=== PATIENT | female | born 2005 | race Caucasian/White ===

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

== ENCOUNTER 2024-12-15 00:15 | Emergency (ER) | payer SELFPAY ==
--- OUTSIDE RECORDS SUMMARY | 2024-12-15 00:20 | XMS REPORT | Continuity of Care Document ---
Author Name Unknown Address [address] [place] [address] [facility] Address [address] [place] [address] Care Team Providers Care Salvage Repairer Name Role Phone Pcp, Patient Does Not Have A Primary Care Physic jesus alberto PHILLY REZA Attending Clinician Unavailable SWAPNA CORBIN Attending Clinician SWAPNA Ureña Attending Clinician CAROLYN Rodrigues Attending Clinician Kira Manrique MD, Carolyn Attending Clinician + [phone] Doctor Unassigned, [place] Attending Clinician U FRAN Christie Attending Clinician TYRON Cifuentes Attending Clinician Tyron Parra Attending Clinician + [phone] TYRON GALLOWAY Attending Clinician Charlee Curtis MD Attending Clinician + [phone] SONIDO MACEDO Attending Clinician NATHANIEL Lewis Attending Clinician Chris Macedo MD, Sonido Pena Attending Clinician [phone] Pob, [facility] Attending Clinician UnavailCHARLEE Taylor Attending Clinician UnavailNITISH Soriano Attending Clinician Unavailable JYOTSNA ROWE Attending Clinician Unavailable ZAHEER NATHAN Attending Clinician JOSH Luna Attending Clinician Unavailable POOJA ASHRAF Attending Clinician Unavailable Pooja Rondon Attending Clinician 1, [facility] Attending Clinician Unavailable Payers Payer Name Policy Type Policy Number Effective Date Expirati on Date Source [place] [employer] MIGUEL KIDSilvia [id number] 2022 00:00:00 Problems Condition Name Condition Details Condition Category Status Onset Date Resolution Date Last Treatment Date Treating Clinician Comments Source Palpitatio ns in pediatric patient Palpitatio ns in pediatric patient Disease Active 10-05 00:00: 00 General acute hospital Unintentio nal weight change Unintentio nal weight change Disease Active 10-04 00:00: 00 General acute hospital Syncope, unspecifie d syncope type Syncope, unspecifie d syncope type Disease Active 10-04 00:00: 00 Overview: Formattin g of this note might be different from the original. Cardiolog y evaluatio n with TC was done on 0. Documents an EKG done showing sinus bradycard ia. A holter monitor was done which showed predomina nt sinus rhythm, heart rates ranging 38-122. She had an echocardi ogram which was normal without structura l heart disease. They suspected that her syncope was not heart related. They discussed the importanc e of hydration and effects from her medicatio ns. They recommend ed to increase water intake and incorpora te healthy salty snacks. General acute hospital Dizziness Dizziness Disease Active 10-04 00:00: 00 General acute hospital MDD (major depressive disorder) MDD (major depressive disorder) Disease Active 04-24 00:00: 00 General acute hospital PTSD (post-trau matic stress disorder) PTSD (post-trau matic stress disorder) Disease Active 04-24 00:00: 00 General acute hospital ADHD (attention deficit hyperactiv ity disorder) ADHD (attention deficit hyperactiv ity disorder) Disease Active 2-11 00:00: 00 General acute hospital Allergies, Adverse Reactions, Alerts Allergy Name Allergy Type Status Severity Reaction(s) Onset Date Inactive Date Treating Clinician Comments Source NO KNOWN ALLERGIE S Drug Class Active General acute hospital Family History Family Member Diagnosis Comments Start Date Stop Date Sourc e Natural father No Significant Medical Problems [facility] Maternal grandfather Diabetes [facility] Maternal grandmother Diabetes [facility] Natural mother Heart Unive [facility] Paternal grandmother Diabetes [facility] Social History Social Habit Start Date Stop Date Quantity Comments Source [facility] Exposure to SARS-CoV-2 (event) 2021-10-04 00:00:00 2021-10-14 15:36:00 Not sure [facility] Alcohol intake 2021-10-14 00:00:00 2021-10-14 00:00:00 0 /d [facility] Tobacco use and exposure 2021-10-14 00:00:00 2021-10-14 00:00:00 Smokeless tobacco non-user [facility] History of Social function 2021-10-14 00:00:00 2021-10-14 00:00:00 [facility] Sex Assigned At 2005 00:00:00 2005 00:00:00 [facility] Smoking Status Start Date Stop Date Source Never smoked tobacco General acute hospital Medications Ordered Medication Name Filled Medication Name Start Date Stop Date Current Medication? Ordering Clinician Indication Dosage Frequency Signature (SIG) Comments Components Source QUEtiapine 50 mg tablet -12 00:00: 00 Yes [id number] TAKE 3 AND 1/2 TABLETS BY MOUTH ONCE DAILY AT BEDTIME General acute hospital QUEtiapine 50 mg tablet 5-10 00:00: 00 09-22 00:00 :00 No [id number] TAKE 3 AND 1/2 TABLETS BY MOUTH ONCE DAILY AT BEDTIME General acute hospital QUEtiapine 50 mg tablet 2022-0 3-20 00:00: 00 Yes [id number] TAKE 3 AND 1/2 TABLETS BY MOUTH ONCE DAILY AT BEDTIME General acute hospital QUEtiapine 50 mg tablet 2022-0 1-17 00:00: 00 Yes [id number] TAKE 3 AND 1/2 TABLETS BY MOUTH ONCE DAILY AT BEDTIME General acute hospital QUEtiapine 50 mg tablet 2021-03 0-27 00:00: 00 Yes [id number] TAKE 3 AND 1/2 TABLETS BY MOUTH ONCE DAILY AT BEDTIME General acute hospital terbinafine HCL 250 mg tablet 8-04 00:00: 00 11-15 04:59 :00 No [id number] 250mg Take 1 tablet by mouth in the morning for 30 days. General acute hospital QUEtiapine 50 mg tablet 8-03 00:00: 00 Yes [id number] TAKE 3 AND 1/2 TABLETS BY MOUTH ONCE DAILY AT BEDTIME General acute hospital QUEtiapine 50 mg tablet 6-02 00:00: 00 09-23 00:00 :00 No [id number] 175mg Take 3.5 tablets by mouth daily. Take 3.5 tablets once a day at bedtime. General acute hospital Immunizations Ordered Immunization Name Filled Immunization Name Date Status Comments Source Influenza Virus Vaccine 2019-12-12 00:00:00 Completed [facility] Influenza Virus Vaccine 2019-12-12 00:00:00 Completed [facility] Influenza Virus Vaccine 2019-12-12 00:00:00 Completed [facility] Meningococcal Polysaccharide (groups A, C, Y and W-135) conjugate vaccine (MCV4P) 2016-11-03 00:00:00 Completed [facility] TDAP 2016-11-03 00:00:00 Completed [facility] Meningococcal Polysaccharide (groups A, C, Y and W-135) conjugate vaccine (MCV4P) 2016-11-03 00:00:00 Completed [facility] TDAP 2016-11-03 00:00:00 Completed [facility] HPV9 2016-04-20 00:00:00 Completed [facility] HPV 2016-04-20 00:00:00 Completed [facility] HPV9 2016-04-20 00:00:00 Completed [facility] HPV 2016-04-20 00:00:00 Completed [facility] HPV9 2016-04-20 00:00:00 Completed [facility] HPV9 2015-10-20 00:00:00 Completed [facility] HPV 2015-10-20 00:00:00 Completed [facility] HPV9 2015-10-20 00:00:00 Completed [facility] HPV 2015-10-20 00:00:00 Completed [facility] HPV 2015-10-20 00:00:00 Completed [facility] HPV9 2015-09-17 00:00:00 Completed [facility] HPV 2015-09-17 00:00:00 Completed [facility] HPV9 2015-09-17 00:00:00 Completed [facility] HPV 2015-09-17 00:00:00 Completed [facility] HEPATITIS A 2011-05-21 00:00:00 Completed [facility] HEPATITIS A 2011-05-21 00:00:00 Completed [facility] HEPATITIS A 2011-05-21 00:00:00 Completed [facility] HEPATITIS A 2010-11-09 00:00:00 Completed [facility] Influenza Virus Vaccine 2010-11-09 00:00:00 Completed [facility] HEPATITIS A 2010-11-09 00:00:00 Completed [facility] Influenza Virus Vaccine 2010-11-09 00:00:00 Completed [facility] DTAP 2007-04-26 00:00:00 Completed [facility] MMR 2007-04-26 00:00:00 Completed [facility] Polio (IPV/OPV) 2007-04-26 00:00:00 Completed [facility] Varicella (varivax)(chicken pox) 2007-04-26 00:00:00 Completed [facility] DTAP 2007-04-26 00:00:00 Completed [facility] MMR 2007-04-26 00:00:00 Completed [facility] Polio (IPV/OPV) 2007-04-26 00:00:00 Completed [facility] Varicella (varivax)(chicken pox) 2007-04-26 00:00:00 Completed [facility] MMR 2007-04-26 00:00:00 Completed [facility] Varicella (varivax)(chicken pox) 2007-04-26 00:00:00 Completed [facility] Influenza Virus Vaccine 2005-03-09 00:00:00 Completed [facility] Influenza Virus Vaccine 2005-03-09 00:00:00 Completed [facility] Influenza Virus Vaccine 2005-01-29 00:00:00 Completed [facility] Influenza Virus Vaccine 2005-01-29 00:00:00 Completed [facility] DTAP 2004-07-16 00:00:00 Completed [facility] HIB 4 Dose Schedule 2004-07-16 00:00:00 Completed [facility] Pneumococcal 7 Conjugate, PCV7 (Prevnar7) 2004-07-16 00:00:00 Completed [facility] DTAP 2004-07-16 00:00:00 Completed [facility] HIB 4 Dose Schedule 2004-07-16 00:00:00 Completed [facility] Pneumococcal 7 Conjugate, PCV7 (Prevnar7) 2004-07-16 00:00:00 Completed [facility] MMR 2004-05-05 00:00:00 Completed [facility] Varicella (varivax)(chicken pox) 2004-05-05 00:00:00 Completed [facility] MMR 2004-05-05 00:00:00 Completed [facility] Varicella (varivax)(chicken pox) 2004-05-05 00:00:00 Completed [facility] DTAP 2003 00:00:00 Completed [facility] HIB 4 Dose Schedule 2003 00:00:00 Completed [facility] Hep B, Adol or Pedi Dosage 2003 00:00:00 Completed [facility] Polio (IPV/OPV) 2003 00:00:00 Completed [facility] Pneumococcal 7 Conjugate, PCV7 (Prevnar7) 2003 00:00:00 Completed [facility] DTAP 2003 00:00:00 Completed [facility] HIB 4 Dose Schedule 2003 00:00:00 Completed [facility] Hep B, Adol or Pedi Dosage 2003 00:00:00 Completed [facility] Polio (IPV/OPV) 2003 00:00:00 Completed [facility] Pneumococcal 7 Conjugate, PCV7 (Prevnar7) 2003 00:00:00 Completed [facility] DTAP 2003 00:00:00 Completed [facility] HIB 4 Dose Schedule 2003 00:00:00 Completed [facility] Hep B, Adol or Pedi Dosage 2003 00:00:00 Completed [facility] Polio (IPV/OPV) 2003 00:00:00 Completed [facility] Pneumococcal 7 Conjugate, PCV7 (Prevnar7) 2003 00:00:00 Completed [facility] DTAP 2003 00:00:00 Completed [facility] HIB 4 Dose Schedule 2003 00:00:00 Completed [facility] Hep B, Adol or Pedi Dosage 2003 00:00:00 Completed [facility] Polio (IPV/OPV) 2003 00:00:00 Completed [facility] Pneumococcal 7 Conjugate, PCV7 (Prevnar7) 2003 00:00:00 Completed [facility] DTAP 2003 00:00:00 Completed [facility] HIB 4 Dose Schedule 2003 00:00:00 Completed [facility] Polio (IPV/OPV) 2003 00:00:00 Completed [facility] Pneumococcal 7 Conjugate, PCV7 (Prevnar7) 2003 00:00:00 Completed [facility] DTAP 2003 00:00:00 Completed [facility] HIB 4 Dose Schedule 2003 00:00:00 Completed [facility] Hep B, Adol or Pedi Dosage 2003 00:00:00 Completed [facility] Polio (IPV/OPV) 2003 00:00:00 Completed [facility] Pneumococcal 7 Conjugate, PCV7 (Prevnar7) 2003 00:00:00 Completed [facility] DTAP 2003 00:00:00 Completed [facility] HIB 4 Dose Schedule 2003 00:00:00 Completed [facility] Hep B, Adol or Pedi Dosage 2003 00:00:00 Completed [facility] Polio (IPV/OPV) 2003 00:00:00 Completed [facility] Pneumococcal 7 Conjugate, PCV7 (Prevnar7) 2003 00:00:00 Completed [facility] Hep B, Adol or Pedi Dosage 2003 00:00:00 Completed [facility] Hep B, Adol or Pedi Dosage 2003 00:00:00 Completed [facility] Hep B, Adol or Pedi Dosage 2003 00:00:00 Completed [facility] Meningococcal Polysaccharide (groups A, C, Y and W-135) conjugate vaccine (MCV4P) Unknown Completed [facility] TDAP Unknown Completed [facility] Vital Signs Vital Name Observation Time Observation Value Comments S ource Systolic blood pressure 2021-09-15 13:06:00 104 mm[Hg] [facility] Diastolic blood pressure 2021-09-15 13:06:00 69 mm[Hg] [facility] Heart rate 2021-09-15 13:06:00 62 /min [facility] Body temperature 2021-09-15 13:06:00 36.17 Carmencita [facility] Respiratory rate 2021-09-15 13:06:00 18 /min [facility] Body height 2021-09-15 13:06:[address] [facility] Body weight 2021-09-15 13:06:[address] [facility] BMI 2021-09-15 13:06:00 20.63 kg/m2 [facility] Body mass index (BMI) [Percentile] Per age and sex 2021-09-15 13:06:00 39.90 % [facility] Oxygen saturation in Arterial blood by Pulse oximetry 2021-09-15 13:06:00 98 /min [facility] Systolic blood pressure 2021-10-14 20:39:00 120 mm[Hg] [facility] Diastolic blood pressure 2021-10-14 20:39:00 75 mm[Hg] [facility] Heart rate 2021-10-14 20:39:00 71 /min [facility] Respiratory rate 2021-10-14 20:39:00 18 /min [facility] Body height 2021-10-14 20:39:[address] [facility] Body weight 2021-10-14 20:39:[address] [facility] BMI 2021-10-14 20:39:00 20.48 kg/m2 [facility] Body mass index (BMI) [Percentile] Per age and sex 2021-10-14 20:39:00 37.53 % [facility] Body temperature 2021-09-15 13:06:00 36.17 Carmencita [facility] Oxygen saturation in Arterial blood by Pulse oximetry 2021-09-15 13:06:00 98 /min [facility] Procedures Procedure Date / Time Performed Performing Clinicia n Source CONSENT/REFUSAL FOR DIAGNOSIS AND TREATMENT 2021-10-14 20:37:37 Doctor Unassigned, [place] [facility] ASSIGNMENT OF BENEFITS 2021-10-14 20:37:16 Docto r Unassigned, [place] [facility] HEPATIC FUNCTION PANEL ([id number]) (ALB,T.PRO,BILI T,BU/BC,ALT,AST,ALK PHOS) 2021-09-15 13:47:00 [facility] FUNGUS (ROUTINE) CULTURE 2021-09-15 13:47:00 [facility] Encounters Start Date/Time End Date/Time Encounter Type Admission Type Attending Clinicians Care Facility Care Department Encounter ID Source 2024-11-26 16:47:38 2024-11-26 16:47:38 Outpatient SFA SFA [id number] Elvin Burroughs 2022-10-18 09:30:00 2022-10-18 09:30:00 Outpatient R [facility] [id number] General acute hospital 2022-09-06 16:00:00 2022-09-06 16:00:00 Outpatient R PHILLY REZA [facility] [id number] General acute hospital 2022-07-07 09:30:00 2022-07-07 09:30:00 Outpatient R EMERALD, SWAPNA CORBIN SWAPNA [facility] [id number] General acute hospital 2022-05-12 11:00:00 2022-05-12 11:00:00 [id number] 2022-03-03 10:15:00 2022-03-03 10:15:00 [id number] 2021-11-09 15:00:00 2021-11-09 15:00:00 Outpatient Dominga MAGANA CAROLYN [facility] [id number] General acute hospital 2021-10-15 00:00:00 2021-10-15 00:00:00 Telephone MarloLindaCarolyn cruz 1.2.840.1 [id number] 3.104.2.7 .3.809126 .8 [id number] General acute hospital 2021-10-14 16:00:00 2021-10-14 17:03:08 Outpatient Dominga CORBIN SWAPNA CORBIN SWAPNA [facility] [id number] General acute hospital 2021-10-14 16:00:00 2021-10-14 16:00:00 Outpatient R EMERALD, SWAPNA CORBIN SWAPNA [facility] [id number] General acute hospital 2021-10-14 00:00:00 2021-10-14 00:00:00 Orders Only Doctor Unassigned, [place] 1.2.840.1 [id number] 3.104.2.7 .3.698021 .8 [id number] General acute hospital 2021-10-14 00:00:00 2021-10-14 00:00:00 Travel 1.2.840.1 [id number] 3.104.2.7 .3.761396 .8 1.2.840.114 350.1.13.10 4.2.7.3.698 [id number] General acute hospital 2021-10-05 16:00:00 2021-10-05 16:00:00 Outpatient FRAN BENTON [facility] [id number] General acute hospital 2021-09-17 00:00:00 2021-09-17 00:00:00 Telephone GlennyCarolyn Vera 1.2.840.1 [id number] 3.104.2.7 .3.845609 .8 [id number] General acute hospital 2021-09-15 08:00:00 2021-09-15 10:03:56 Office Visit Ernestina maganaCarolyn [facility] 1.2840.114 350.1.13.10 4.2.7.2.686 [id number] General acute hospital 2021-09-15 08:00:00 2021-09-15 10:03:56 Outpatient R ERNESTINA CAROLYN MAGANA [facility] [id number] General acute hospital 2021-09-15 08:00:00 2021-09-15 08:00:00 Outpatient R ERNESTINA MAGANACAROLYN [facility] [id number] General acute hospital 2021-09-14 15:40:00 2021-09-14 16:38:00 Emergency X TYRON AVILA [facility] [id number] General acute hospital 2021-09-14 15:40:00 2021-09-14 16:38:00 Emergency Tyron Avila [facility] 1.2.840.114 350.1.13.10 4.2.7.2.686 [id number] General acute hospital 2021-09-14 15:40:00 2021-09-14 16:38:00 Emergency X TYRON AVILA [facility] [id number] General acute hospital 2021-09-14 15:40:00 2021-09-14 16:38:00 Emergency Tyron Avila 1.2.840.1 [id number] 3.104.2.7 .3.445421 .8 [id number] General acute hospital 2021-09-14 00:00:00 2021-09-14 00:00:00 Travel 1.2.840.1 [id number] 3.104.2.7 .3.154978 .8 1.2.840.114 350.1.13.10 4.2.7.3.698 084.8 [id number] General acute hospital 2021-07-16 08:45:00 2021-07-16 08:45:00 Outpatient TRYON OSORIO [facility] [id number] General acute hospital 2021-07-16 08:45:00 2021-07-16 08:45:00 Outpatient TYRON OSORIO [facility] [id number] General acute hospital 2021-07-07 00:00:00 2021-07-07 00:00:00 Telephone Charlee Rico 1.2.840.1 [id number] 3.104.2.7 .3.383389 .8 [id number] General acute hospital 2021-07-07 00:00:00 2021-07-07 00:00:00 Telephone Charlee Rico 1.2.840.1 [id number] 3.104.2.7 .3.837660 .8 [id number] General acute hospital 2021-06-18 08:00:00 2021-06-18 08:59:11 Outpatient TYRON OSORIO [facility] [id number] General acute hospital 2021-06-18 00:00:00 2021-06-18 00:00:00 Travel 1.2.840.1 [id number] 3.104.2.7 .3.727566 .8 1.2.840.114 350.1.13.10 4.2.7.3.698 084.8 [id number] General acute hospital 2021-06-04 12:45:00 2021-06-04 12:45:00 Outpatient SONIDO BAY [facility] [id number] General acute hospital 2021-05-19 14:15:00 2021-05-19 14:15:00 Outpatient NATHANIEL AMBROSIO [facility] [id number] [facility] 2021-05-19 14:15:00 2021-05-19 14:15:00 Outpatient NATHANIEL AMBROSIO [facility] [id number] [facility] 2021-05-19 00:00:00 2021-05-19 00:00:00 Orders Only Doctor Unassigned, [place] 1.2.840.1 [id number] 3.104.2.7 .3.872297 .8 [id number] General acute hospital 2021-01-29 13:30:00 2021-01-29 15:56:55 Outpatient SONIDO BAY [facility] [id number] General acute hospital 2021-01-29 13:30:00 2021-01-29 13:30:00 Outpatient SONIDO BAY [facility] [id number] General acute hospital 2021-01-29 00:00:00 2021-01-29 00:00:00 Travel 1.2.840.1 [id number] 3.104.2.7 .3.474297 .8 1.2.840.114 350.1.13.10 4.2.7.3.698 084.8 [id number] General acute hospital 2021-01-01 15:45:00 2021-01-01 15:45:00 Outpatient SONIDO BAY [facility] [id number] General acute hospital 2020-12-01 10:30:00 2020-12-01 10:30:00 Outpatient R SONIDO MACEDO [facility] [id number] General acute hospital 2020-12-01 10:07:50 2020-12-01 10:22:50 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 Visit Sonido Macedo Jean Benjamin, [facility] 1.840.1 [id number] 3.104.2.7 .3.779478 .8 [id number] General acute hospital 2020-12-01 00:00:00 2020-12-01 00:00:00 Orders Only Doctor Unassigned, [place] 1.840.1 [id number] 3.104.2.7 .3.882213 .8 [id number] General acute hospital 2020-12-01 00:00:00 2020-12-01 00:00:00 Letter (Out) Charlee Rico 1..840.1 [id number] 3.104.2.7 .3.325013 .8 [id number] General acute hospital 2020-11-18 14:43:06 2020-11-18 15:03:06 Office Visit Charlee Rico 1..840.1 [id number] 3.104.2.7 .3.333129 .8 [id number] General acute hospital 2020-11-18 14:40:00 2020-11-18 14:40:00 Outpatient CHARLEE ANAYA [facility] [id number] General acute hospital 2020-11-18 09:00:00 2020-11-18 09:00:00 Outpatient CHARLEE ANAYA [facility] [id number] General acute hospital 2020-11-18 00:00:00 2020-11-18 00:00:00 Orders Only Doctor Unassigned, [place] [facility] 1..840.114 350.1.13.10 4.2.7.2.686 [id number] General acute hospital 2020-11-18 00:00:00 2020-11-18 00:00:00 Orders Only Doctor Unassigned, [place] 1.2.840.1 77590.1.1 3.104.2.7 .3.655739 .8 [id number] General acute hospital 2020-11-18 00:00:00 2020-11-18 00:00:00 Travel 1.2.840.1 [id number] 3.104.2.7 .3.688738 .8 1.2.840.114 350.1.13.10 4.2.7.3.698 084.8 [id number] General acute hospital 2020-10-07 14:00:00 2020-10-07 14:00:00 Outpatient NITISH WASSERMAN [facility] [id number] General acute hospital 2020-10-02 15:45:00 2020-10-02 15:45:00 Outpatient SONIDO BAY [facility] [id number] General acute hospital 2020-10-02 00:00:00 2020-10-02 00:00:00 Orders Only Doctor Unassigned, [place] 1.2.840.1 [id number] 3.104.2.7 .3.917719 .8 [id number] General acute hospital 2020-10-02 00:00:00 2020-10-02 00:00:00 Travel 1.2.840.1 [id number] 3.104.2.7 .3.427711 .8 1.2.840.114 350.1.13.10 4.2.7.3.698 084.8 [id number] General acute hospital 2020-05-13 14:15:00 2020-05-13 14:15:00 Outpatient NATHANIEL AMBROSIO [facility] [id number] Marbin recio [facility] 2020-05-13 00:00:00 2020-05-13 00:00:00 Telephone Charlee Rico 1.2.840.1 [id number] 3.104.2.7 .3.087138 .8 [id number] General acute hospital 2020-05-12 00:00:00 2020-05-12 00:00:00 Travel 1.2.840.1 [id number] 3.104.2.7 .3.008220 .8 1.2.840.114 350.1.13.10 4.2.7.3.698 084.8 [id number] General acute hospital 2020-03-11 15:00:00 2020-03-11 15:00:00 Outpatient NATHANIEL AMBROSIO [id number] 00:00:00 2020-03-11 00:00:00 Travel 1.2.840.1 [id number] 3.104.2.7 .3.368934 .8 1.2.840.114 350.1.13.10 4.2.7.3.698 084.8 [id number] General acute hospital 2020-02-21 00:00:00 2020-02-21 00:00:00 Orders Only Doctor Unassigned, [place] 1.2.840.1 62210.1.1 3.104.2.7 .3.506961 .8 [id number] General acute hospital 2020-02-06 00:00:00 2020-02-06 00:00:00 Telephone Charlee Rico 1.2.840.1 [id number] 3.104.2.7 .3.166510 .8 [id number] General acute hospital 2020-01-30 18:20:00 2020-01-30 18:20:00 Outpatient JYOTSNA IRAHETA [facility] [id number] General acute hospital 2019-12-14 00:00:00 2019-12-14 00:00:00 Telephone Charlee Rico 1.2.840.1 [id number] .[id number] .8 [id number] General acute hospital 2019-12-13 00:00:00 2019-12-13 00:00:00 Telephone Charlee Rico 1.2.840.1 [id number] 3.104.2.7 .[id number] .[id number] General acute hospital 2019-11-01 15:15:00 2019-11-01 15:15:00 Outpatient SONIDO BAY [facility] [id number] General acute hospital 2019-11-01 00:00:00 2019-11-01 00:00:00 Travel 1.2.840.1 [id number] 3.104.2.7 .[id number] .8 1.2.840.114 350.1.13.10 4.2.7.3.698 [id number] General acute hospital 2019-09-27 08:00:00 2019-09-27 08:00:00 Outpatient SONIDO BAY [facility] [id number] General acute hospital 2019-09-27 00:00:00 2019-09-27 00:00:00 Travel 1.2.840.1 [id number] 3.104.2.7 .[id number] .8 1.2.840.114 350.1.13.10 4.2.7.3.698 [id number] General acute hospital 2019-07-12 13:45:00 2019-07-12 13:45:00 Outpatient ZAHEER GRIFFIN [facility] [id number] General acute hospital 2019-05-21 14:30:00 2019-05-21 14:30:00 Outpatient JOSH CAPPS [facility] [id number] [facility] 2019-04-25 14:00:00 2019-04-25 14:00:00 Outpatient POOJA HILARIO [facility] [id number] General acute hospital 2019-04-23 11:01:37 2019-04-23 11:29:17 Office Visit Charlee Rico 1.2.840.1 [id number] 3.104.2.7 .[id number] .8 [id number] General acute hospital 2019-04-23 11:00:00 2019-04-23 11:29:17 Outpatient R CHARLEE RICO [facility] [id number] General acute hospital 2019-04-23 00:00:00 2019-04-23 00:00:00 Letter (Out) Charlee Rico [facility] 1.2.840.114 350.1.13.10 4.2.7.2.686 [id number] General acute hospital 2019-04-23 00:00:00 2019-04-23 00:00:00 Orders Only Doctor Unassigned, [place] 1.2.840.1 [id number] 3.104.2.7 .3.303658 .8 [id number] General acute hospital 2019-04-12 00:00:00 2019-04-12 00:00:00 Orders Only Doctor Unassigned, [place] 1.2.840.1 [id number] 3.104.2.7 .3.581619 .8 [id number] General acute hospital 2019-04-06 00:00:00 2019-04-06 00:00:00 Telephone Pooja Ashraf 1.2.840.1 [id number] 3.104.2.7 .3.499731 .8 [id number] General acute hospital 2018-11-23 00:00:00 2018-11-23 00:00:00 Telephone Pooja Ashraf 1.2.840.1 [id number] 3.104.2.7 .3.814792 .8 [id number] General acute hospital 2018-10-06 11:54:31 2018-10-06 12:09:31 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 Visit 1, [facility] Pooja Ashraf [facility] 1.2.840.114 350.1.13.10 4.2.7.2.686 [id number] General acute hospital Results Test Description Test Time Test Comments Results Result Co mments Source [facility]
[2024-12-15 00:31] LABS: Absolute Lymphocytes (CBC) 2.0 K/uL (0.7-4.9); Hematocrit 36.3 % (36.0-45.0); Hemoglobin 12.3 g/dL (12.0-15.0); MCH 30.7 pg (27.0-35.0); MCHC 33.9 g/dL (32.0-36.0); MCV 90.6 fL (80-100); MPV 9.7 fL (7.6-11.3); Nucleated RBC Absolute Count 0.0 (0-0); Nucleated Red Blood Cells % 0.0 % (0-0); RBC Red Blood Cell Count 4.01 M/uL (3.86-4.86); White Blood Count 9.60 thou/uL (4.3-10.9)
[2024-12-15 00:46] LABS: ALT/SGPT 19.0 U/L (13-56); AST/SGOT 14.0 U/L (15-37); Albumin 3.8 g/dL (3.4-5.0); Albumin/Globulin Ratio 1.6 (1.1-1.8); Alkaline Phosphatase 54.0 U/L (45-117); Anion Gap 6.5 mEq/L (5.0-15.0); BUN Blood Urea Nitrogen 12.0 mg/dL (7-18); Globulin 2.4 g/dL (2.3-3.5); Glucose Level 84.0 mg/dL (74-106); Potassium 3.5 mEq/L (3.5-5.1)
--- NOTE | 2024-12-15 02:04 | RAD REPORT ---
EXAM: CT Head and Cervical Spine Without Intravenous Contrast CLINICAL HISTORY: The patient is 19 years old and is Female; TRAUMA TECHNIQUE: Axial computed tomography images of the head/brain and cervical spine without intravenou s contrast. Sagittal and coronal reformatted images were created and reviewed. This CT exam was performed using one or more of the following dose reduction techniques: automated exposure control, adjustment of the mA and/or kV according to patient size, and/or use of iterative reconstruction technique. COMPARISON: No relevant prior studies available. FINDINGS: Brain: Unremarkable. No hemorrhage. No significant white matter disease. No edema. Ventricles: Unremarkable. No ventriculomegaly. Skull: No acute fracture. Sinuses: Unremarkable as visualized. No acute sinusitis. Mastoid air cells: Unremarkable as visualized. No mastoid effusion. Vertebrae: Unremarkable. No acute fracture. Normal alignment. Discs/spinal canal/neural foramina: No acute findings. No spinal canal stenosis. Soft tissues: Unremarkable. IMPRESSION: No acute intracranial abnormality. No acute findings in the cervical spine. Electronically signed by: Aaron Jain MD 12/15/2024 02:01 AM T 8 Due to temporary technical issues with the PACS/N3TWORK reporting system, reports are being domenica d by the in-house radiologist without review as a courtesy to ensure prompt reporting the interpreting radiologist is fully responsible for the content of the report. Transcribed Date/Time: 12/15/2024 2:04 AM
[2024-12-15] MEDS ORDERED: ACETAMINOPHEN 500 MG TAB ONE (02:26)
[2024-12-15] MEDS ORDERED: NA CHLORIDE 0.9% 1,000 ML ONE (02:27)
--- NOTE | 2024-12-15 02:54 | EDPHYS ---
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 - Infectious Disease History:: Denies. - Social history:: Smoking status: Reported history of juuling and/or vaping. Patient uses street drugs, marijuana, Patient/guardian denies using alcohol. Vital Signs: 00:20 BP 127 / 86; Pulse 77; Resp 16 S; Temp 97.5(O); Pulse Ox 99% on R/A; Weight 49.9 kg lg3 (R); Height 5 ft. 5 in. (R); Pain 0/10; 00:45 BP 112 / 72; Pulse 76; Resp 16; Pulse Ox 100% on R/A; kb4 01:30 BP 101 / 86; Pulse 61; Resp 18; Pulse Ox 99% on R/A; kb4 01:30 BP 98 / 58; Pulse 53; Resp 18; Pulse Ox 95% ; kb4 03:10 BP 114 / 69; Pulse 88; Resp 16; Pulse Ox 99% ; kb4 00:20 Body Mass Index 18.30 (49.90 kg, 165.1 cm) lg3 00:20 Pain Scale: Adult lg3 MDM: 00:15 Medical Screening Exam initiated tt7 10 00:16 Order name: CBC with Diff; Complete Time: 00:48 tt7 10 00:16 Order name: CMP; Complete Time: 00:48 tt7 10 00:16 Order name: Test, Serum; Complete Time: 00:48 tt7 1004 00:16 Order name: CT Head C Spine tt7 12/15 00:16 Order name: Labs collected and sent; Complete Time: 00:26 tt7 Administered Medications: 02:32 Drug: NS 0.9% IV 1000 ml IV at 1 bolus Per protocol; to be given as a bolus over 30 al5 minutes Route: IV; Rate: 1 bolus; Site: right antecubital; 03:11 Follow up: Response: No adverse reaction; IV Status: Completed infusion; IV Intake: al5 1000ml 02:32 Drug: Acetaminophen PO 1000 mg PO once Route: PO; al5 03:11 Follow up: Response: No adverse reaction kb4 Disposition Summary: 12/15/24 02:54 Discharge Ordered Notes: Location: Home tt7 Problem: new tt7 Symptoms: are resolved tt7 Condition: Stable tt7 Diagnosis - Unspecified injury of head, initial encounter tt7 Followup: tt7 - With: Emergency Department - When: As needed - Reason: Followup: tt7 - With: Private Physician - When: 1 - 2 days - Reason: Recheck today's complaints, Re-evaluation by your physician Discharge Instructions: - Discharge Summary Sheet tt7 - Head Injury, Adult, [id number] tt7 Forms: - Medication Reconciliation Form tt7 - Antibiotic Education tt7 - Prescription Opioid Use tt7 - Patient Portal Instructions tt7 - Leadership Thank You Letter tt7 Addendum: 12/18/2024 09:34 Addendum: 19-year-old female presents emergency department after she fell from sitting t t7 position, sounds like she had near syncope, felt lightheaded and then fell and hit her head, this was shortly after taking a THC gummy, she does report brief loss of consciousness, denies any current symptoms. Constitutional: denies fever Respiratory: denies SOB, cough Cardiovascular: denies chest pain, palpitations GI: denies abdominal pain, nausea, vomiting Neuro: denies focal weakness Skin: denies rash Constitutional: vital signs reviewed, well appearing Head: normocephalic, atraumatic Eyes: no conjunctival injection, anicteric sclerae ENMT: mucus membranes moist Neck: trachea midline, no JVD, no meningismus Respiratory: normal respiratory effort, no accessory muscle use, lungs CTAB, no wheezing or rales Cardiovascular: Regular rate and rhythm, no murmurs, no rubs, no lower extremity edema Abdomen: soft, nondistended, nontender, no guarding or rebound, negative Duval's sign, no McBurney point tenderness MSK: normal ROM of extremities, no gross deformities Skin: warm, dry, intact, no rash Neuro: alert and oriented with appropriate mental status, normal speech, follows commands, no focal neurologic deficits Psych: appropriate mood and affect Vital signs are stable, physical exam reassuring, CBC and chemistry ordered as well as , CT imaging of the head and cervical spine were obtained, patient was treated with IV fluids and acetaminophen, overall workup is reassuring, no acute traumatic injuries, patient had some softer blood pressures, suspect hypovolemia contributed to near syncopal symptoms and caused her fall, blood pressure significantly improved after IV fluids, patient was able to ambulate appropriate in the emergency department, after completion of the patient's emergency department evaluation, I do not suspect a life-threatening or disabling process. Patient is medically stable and not in need of emergent medical intervention. I had a detailed discussion with the patient regarding the historical points, exam findings, emergency department evaluation, diagnostic results, and the discharge diagnosis. I instructed the patient on outpatient management of their condition. I discussed the need for outpatient follow-up with a primary care physician. I informed the patient on return precautions, including the need to return to the ED if symptoms do not improve, worsen, or if there are any questions or concerns that arise at home. The patient was discharged in stable condition. Co-signature as Attending Physician, Troy Sotelo DO. Signatures: Dispatcher [employer] EDRosangela Nguyen, RN RN lg3 Chary Gibson RN RN al5 Troy Sotelo DO DO tt7 Oneyda Daniels RN kb4 Corrections: (The following items were deleted from the chart) 12/15 00:17 00:17 CBC+H.LAB.BRZ ordered. EDMS EDMS 00:17 00:17 COMPREHENSIVE METABOLIC PANEL+C.LAB.BRZ ordered. EDMS EDMS 00:17 00:17 TEST, SERUM+SC.LAB.BRZ ordered. EDMS EDMS 00:17 00:17 Head C Spine MPR Wo Con+CT.RAD.BRZ ordered. EDMS EDMS
--- NOTE | 2024-12-15 02:54 | ER ---
Nurse's Notes [facility] Name: Juanita Hugo Age: 19 yrs Sex: Female : 2005 Arrival Date: 12/15/2024 Time: 00:13 Bed 5 Private MD: Diagnosis: Unspecified injury of head, initial encounter Presentation: 12/15 00:20 Chief complaint: EMS states: took THC gummy. fall from sitting position. unwitnessed. lg3 reports LOC and hitting head. denies pain. unable to give specifics of incident. Coronavirus screen: Client denies travel out of the [place] in the last 14 days. At this time, the client does not indicate any symptoms associated with coronavirus-19. Ebola Screen: No symptoms or risks identified at this time. Initial Sepsis Screen: Does the patient meet any 2 criteria? No. Patient's initial sepsis screen is negative. Does the patient have a suspected source of infection? No. Patient's initial sepsis screen is negative. Risk Assessment: Do you want to hurt yourself or someone else? Patient reports no desire to harm self or others. Onset of symptoms was December 15, 2024. 00:20 Method Of Arrival: EMS: [facility] lg3 00:20 Acuity: SUZETTE 3 lg3 Triage Assessment: 00:24 General: Appears in no apparent distress. comfortable, slender, Behavior is anxious, lg3 crying. Pain: Denies pain. EENT: No deficits noted. Reports ringing in left ear and right ear. Neuro: [place] Agitation-Sedation Scale (RASS): -1 Drowsy Level of Consciousness is awake, obeys commands, Oriented to person, place, time, situation. Cardiovascular: No deficits noted. Denies chest pain, shortness of breath, Capillary refill < 3 seconds Clubbing of nail beds is absent JVD is absent Patient's skin is warm and dry. Respiratory: No deficits noted. Airway is patent Respiratory effort is even, unlabored, Respiratory pattern is regular, symmetrical. GI: No deficits noted. No signs and/or symptoms were reported involving the gastrointestinal system. Abdomen is flat, non-distended. : No signs and/or symptoms were reported regarding the genitourinary system. Derm: No deficits noted. No signs and/or symptoms reported regarding the dermatologic system. Skin is intact, is healthy with good turgor, Skin is dry, Skin is normal, Skin temperature is warm. Musculoskeletal: No deficits noted. No signs and/or symptoms reported regarding the musculoskeletal system. Circulation, motion, and sensation intact. Range of motion: intact in all extremities. 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 - Infectious Disease History:: Denies. - Social history:: Smoking status: Reported history of juuling and/or vaping. Patient uses street drugs, marijuana, Patient/guardian denies using alcohol. Screenin:26 [facility] ED Fall Risk Assessment (Adult) History of falling in the last 3 months, lg3 including since admission Yes- single mechanical fall (1 pt) Confusion or Disorientation No (0 pts) Intoxicated or Sedated Yes (3 pts) Impaired Gait No (0 pts) Mobility Assist Device Used No (0 pt) Altered Elimination No (0 pt) Score/Fall Risk Level 3 or more points = High Risk Oriented to surroundings, Maintained a safe environment, Educated pt \T\ family on fall prevention, incl call for assistance when getting out of bed, Assessed \T\ reinforced patient's understanding of fall precautions. Abuse screen: Denies threats or abuse. Denies injuries from another. Nutritional screening: No deficits noted. Tuberculosis screening: No symptoms or risk factors identified. Assessment: 00:26 General: see triage assessment. lg3 02:04 Reassessment: Patient and/or family updated on plan of care and expected duration. Pain kb4 level reassessed. Patient is alert, oriented x 3, equal unlabored respirations, skin warm/dry/pink. 03:10 Reassessment: Patient and/or family updated on plan of care and expected duration. Pain kb4 level reassessed. Patient is alert, oriented x 3, equal unlabored respirations, skin warm/dry/pink. Vital Signs: 00:20 BP 127 / 86; Pulse 77; Resp 16 S; Temp 97.5(O); Pulse Ox 99% on R/A; Weight 49.9 kg lg3 (R); Height 5 ft. 5 in. (R); Pain 0/10; 00:45 BP 112 / 72; Pulse 76; Resp 16; Pulse Ox 100% on R/A; kb4 01:30 BP 101 / 86; Pulse 61; Resp 18; Pulse Ox 99% on R/A; kb4 01:30 BP 98 / 58; Pulse 53; Resp 18; Pulse Ox 95% ; kb4 03:10 BP 114 / 69; Pulse 88; Resp 16; Pulse Ox 99% ; kb4 00:20 Body Mass Index 18.30 (49.90 kg, 165.1 cm) lg3 00:20 Pain Scale: Adult lg3 ED Course: 00:13 Patient arrived in ED. vk 00:15 Troy Sotelo DO is Attending Physician. tt7 00:24 Triage completed. lg3 00:24 Arm band placed on right wrist. lg3 00:26 Oneyda Daniels, ALESHA is Primary Nurse. kb4 00:26 Patient has correct armband on for positive identification. Placed in gown. Bed in low lg3 position. Call light in reach. Side rails up X 1. Client placed on continuous cardiac and pulse oximetry monitoring. NIBP monitoring applied. Door closed. Noise minimized. Warm blanket given. Pillow given. 00:26 Initial lab(s) drawn, by ED staff, sent to lab. Maintain EMS IV. Dressing intact. Good lg3 blood return noted. Site clean \T\ dry. Gauge \T\ site: 20 RAC. Flushed with 10 mL NS. 01:22 CT Head C Spine In Process Unspecified. EDMS 03:10 Provided Education on: discharge follow up, cessation of drug gummies. al5 03:10 No provider procedures requiring assistance completed. IV discontinued, intact, al5 bleeding controlled, No redness/swelling at site. Pressure dressing applied. Administered Medications: 02:32 Drug: NS 0.9% IV 1000 ml IV at 1 bolus Per protocol; to be given as a bolus over 30 al5 minutes Route: IV; Rate: 1 bolus; Site: right antecubital; 03:11 Follow up: Response: No adverse reaction; IV Status: Completed infusion; IV Intake: al5 1000ml 02:32 Drug: Acetaminophen PO 1000 mg PO once Route: PO; al5 03:11 Follow up: Response: No adverse reaction kb4 Medication: 00:26 VIS not applicable for this client. lg3 Intake: 03:11 IV: 1000ml; Total: 1000ml. al5 Outcome: 02:54 Discharge ordered by . tt7 03:11 Discharged to home ambulatory, with friend, al5 03:11 Condition: good 03:11 Discharge instructions given to patient, Instructed on discharge instructions, follow up and referral plans. Demonstrated understanding of instructions, follow-up care, 03:12 Patient left the ED. al5 Signatures: Dispatcher [employer] EDMS Rosangela Dorsey, RN RN lg3 Beryl Canales Amanda RN RN al5 Oneyda Daniels RN RN kb4 Troy Sotelo, DO tt7
[2024-12-15 03:43] VITALS: TEMP 97.5
[2024-12-15 03:48] VITALS: BP 114/69; O2SAT 99
== END 2024-12-15 03:12 | disposition home or self-care (01) ==
LOC: ER 00:15
DX: S09.90XA Unspecified injury of head, initial encounter (principal)
CPT/HCPCS: 36415; 70450; 72125; 80053; 84703; 85025; 96360; 99284; J7030

== ENCOUNTER 2025-01-03 10:59 | Emergency (ER) | payer SELFPAY ==
--- NOTE | 2025-01-03 11:57 | RAD REPORT ---
EXAM: XR LEFT HAND HISTORY: Pain. DEFORMITY COMPARISON: None TECHNIQUE: Multiple projections of the left hand submitted. FINDINGS: Mild third digit soft tissue swelling.. Subtle bony irregularity at the base of the middle phalanx of the third finger radial aspect may be a small fracture.
[2025-01-03] MEDS ORDERED: AZITHROMYCIN 250 MG TAB ONE (12:45)
--- NOTE | 2025-01-03 12:48 | EDPHYS ---
Physician Documentation [facility] Name: Juanita Hugo Age: 19 yrs Sex: Female : 2005 Arrival Date: 01/03/2025 Time: 10:59 Bed 12 Private MD: ED Physician sIh Mak HPI: 01/03 12:39 This 19 yrs old Female presents to ER via Ambulatory with complaints of Sore hiwot Throat, Finger Injury. 12:39 The patient presents with sore throat. The patient describes throat pain as constant, hiwot raw. Onset: The symptoms/episode began/occurred 2 day(s) ago. Severity of symptoms: At their worst the symptoms were mild, in the emergency department the symptoms are unchanged. Modifying factors: The symptoms are alleviated by nothing, the symptoms are aggravated by swallowing, Patient's oral intake status: good. Associated signs and symptoms: The patient has no apparent associated signs or symptoms. The patient has experienced similar episodes in the past, a few times. Historical: - Allergies: 11:29 No Known Allergies; bp - PMHx: 11:29 Anxiety; Bipolar disorder; Depression; Schizophrenia; bp - Immunization history:: Adult Immunizations up to date. - Infectious Disease History:: Denies. - Social history:: Smoking status: Patient denies any tobacco usage or history of. ROS: 12:40 Constitutional: Negative for fever, chills, and weight loss, Eyes: Negative for injury, hiwot pain, redness, and discharge, Neck: Negative for injury, pain, and swelling, Cardiovascular: Negative for chest pain, palpitations, and edema, Respiratory: Negative for shortness of breath, cough, wheezing, and pleuritic chest pain, Abdomen/GI: Negative for abdominal pain, nausea, vomiting, diarrhea, and constipation, Back: Negative for injury and pain, : Negative for injury, bleeding, discharge, and swelling, Skin: Negative for injury, rash, and discoloration, Neuro: Negative for headache, weakness, numbness, tingling, and seizure, Psych: Negative for depression, anxiety, suicide ideation, homicidal ideation, and hallucinations, Allergy/Immunology: Negative for hives, rash, and allergies, Endocrine: Negative for neck swelling, polydipsia, polyuria, polyphagia, and marked weight changes, Hematologic/Lymphatic: Negative for swollen nodes, abnormal bleeding, and unusual bruising, 12:40 ENT: Positive for sore throat, 12:40 MS/extremity: Positive for decreased range of motion, pain, swelling, tenderness, Exam: 12:41 Constitutional: This is a well developed, well nourished patient who is awake, alert, hiwot and in no acute distress. Head/Face: Normocephalic, atraumatic. Eyes: Pupils equal round and reactive to light, extra-ocular motions intact. Lids and lashes normal. Conjunctiva and sclera are non-icteric and not injected. Cornea within normal limits. Periorbital areas with no swelling, redness, or edema. Neck: Trachea midline, no thyromegaly or masses palpated, and no cervical lymphadenopathy. Supple, full range of motion without nuchal rigidity, or vertebral point tenderness. No Meningismus. Chest/axilla: Normal chest wall appearance and motion. Nontender with no deformity. No lesions are appreciated. Cardiovascular: Regular rate and rhythm with a normal S1 and S2. No gallops, murmurs, or rubs. Normal PMI, no JVD. No pulse deficits. Respiratory: Lungs have equal breath sounds bilaterally, clear to auscultation and percussion. No rales, rhonchi or wheezes noted. No increased work of breathing, no retractions or nasal flaring. Abdomen/GI: Soft, non-tender, with normal bowel sounds. No distension or tympany. No guarding or rebound. No evidence of tenderness throughout. Back: No spinal tenderness. No costovertebral tenderness. Full range of motion. Skin: Warm, dry with normal turgor. Normal color with no rashes, no lesions, and no evidence of cellulitis. Neuro: Awake and alert, GCS 15, oriented to person, place, time, and situation. Cranial nerves II-XII grossly intact. Motor strength 5/5 in all extremities. Sensory grossly intact. Cerebellar exam normal. Normal gait. Psych: Awake, alert, with orientation to person, place and time. Behavior, mood, and affect are within normal limits. 12:41 ENT: Posterior pharynx: Airway: normal, no evidence of obstruction, Tonsils: are normal in appearance, enlarged on the right, enlarged on the left, Uvula: normal, midline, non-edematous, no erythema, swelling, is not appreciated, erythema, that is mild, exudate, is not appreciated, peritonsillar mass, is not appreciated, pooling of secretions, is not appreciated, Vital Signs: 11:26 BP 112 / 76; Pulse 68; Resp 16; Temp 97.9; Pulse Ox 99% ; bp 12:07 BP 115 / 77; Pulse 65; Resp 18; Temp 98.4; Pulse Ox 100% ; Pain 5/10; rg5 12:07 Pain Scale: Adult rg5 Procedures: 12:43 Splinting: Splint applied to dorsal aspect of middle phalanx of left middle finger, hiwot dorsal aspect of proximal phalanx of left middle finger, palmar aspect of middle phalanx of left middle finger and palmar aspect of proximal phalanx of left middle finger using finger splint, applied by nurse. Examined by me, post splint application: neurovascular intact, brisk capillary refill noted. MDM: 11:03 Medical Screening Exam initiated hiwot 12:43 Differential diagnosis: apthous stomatitis, apthous ulcer, dislocation, closed hiwot fracture, contusion, tendonitis, cocksackie virus, echovirus infection, epiglottitis, group A strep tonsillitis, influenza, laryngitis, peritonsillar abscess chlamydia pharyngitis, neisseria gonorrheoeae pharangitis, Mycoplasma Pharyngitis pharyngitis, upper respiratory infection. Data reviewed: vital signs, nurses notes. Consideration of Admission/Observation Escalation of care including admission/observation considered. I considered the following discharge prescriptions or medication management in the emergency department Medications were administered in the Emergency Department. See MAR. Independent interpretation of the following test(s) in the Emergency Department X-Ray: My interpretation is LEFT HAND. Test considered but Not performed: Labs: NO CBC , CMP. Historians other than the Patient: PT WELL INFORMED. Care significantly affected by the following chronic conditions: ANXIETY, BIPOLAR, DEPRESSION, SCHIZIO. Counseling: I had a detailed discussion with the patient and/or guardian regarding the historical points, exam findings, and any diagnostic results supporting the discharge/admit diagnosis, radiology results, the need for outpatient follow up, for definitive care, a family practitioner. 01/03 11:28 Order name: Group A Streptococcus Rapid; Complete Time: 12:09 bp 01/03 11:46 Order name: Throat Culture EDMS 01/03 11:28 Order name: Hand Left 3 View XRAY; Complete Time: 12:09 bp 01/03 12:38 Order name: Splint - Finger; Complete Time: 12:48 [facility] Administered Medications: 12:48 Drug: AZITHromycin PO 500 mg PO once Route: PO; rg5 12:57 Follow up: Response: No adverse reaction rg5 Disposition Summary: 01/03/25 12:47 Discharge Ordered Notes: Location: Home [facility] Problem: new [facility] Symptoms: have improved [facility] Condition: Stable [facility] Diagnosis - Acute pharyngitis, unspecified hiwot - Acute upper respiratory infection, unspecified hiwot - Nondisplaced fracture of middle phalanx of left middle finger, initial encounter [facility] for closed fracture Followup: hiwot - With: Private Physician - When: 2 - 3 days - Reason: Recheck today's complaints, Continuance of care, Re-evaluation by your physician Followup: hiwot - With: Victor M Figueroa MD - When: 2 - 3 days - Reason: Recheck today's complaints, Re-evaluation by your physician Discharge Instructions: - Discharge Summary Sheet [facility] - Finger Fracture, Adult [facility] - Pharyngitis [facility] - Sore Throat hiwot - Upper Respiratory Infection, Adult hiwot - Cool Mist Vaporizer hiwot - Finger Fracture, Adult, [id number] hiwot - Upper Respiratory Infection, Adult, Uvvu-pa-[id number] hiwot - Pharyngitis, [id number] [facility] Forms: - Medication Reconciliation Form [facility] - Antibiotic Education [facility] - Prescription Opioid Use [facility] - Patient Portal Instructions [facility] - Leadership Thank You Letter [facility] Prescriptions: - Zithromax Z-David 250 mg Oral Tablet - take 1 tablet ORAL route as directed for 5 days Day 1 - take two (2) tablets [facility] one time. Day 2, 3, 4 , 5 take one (1) tablet once daily.; 6 tablet; Refills: 0, Product Selection Permitted - Motrin IB 200 mg Oral tablet - take 2 tablet ORAL route every 6 hours As needed as needed with food; 30 hiwot tablet; Refills: 0, Product Selection Permitted Signatures: Dispatcher [employer] Ish River MD MD cha Peltier, Brian, RN RN bp Damir Ho, RN RN rg5
--- NOTE | 2025-01-03 12:48 | ER ---
Nurse's Notes [facility] Name: Juanita Hugo Age: 19 yrs Sex: Female : 2005 Arrival Date: 01/03/2025 Time: 10:59 Bed 12 Private MD: Diagnosis: Acute pharyngitis, unspecified;Acute upper respiratory infection, unspecified;Nondisplaced fracture of middle phalanx of left middle finger, initial encounter for closed fracture Presentation: 01/03 11:26 Chief complaint: Patient states: SORE THROAT x2 DAYS AND LEFT 3RD FINGER INJURY WITH bp BRUISING. Coronavirus screen: At this time, the client does not indicate any symptoms associated with coronavirus-19. Ebola Screen: No symptoms or risks identified at this time. Initial Sepsis Screen: Does the patient meet any 2 criteria? No. Patient's initial sepsis screen is negative. Does the patient have a suspected source of infection? No. Patient's initial sepsis screen is negative. Risk Assessment: Do you want to hurt yourself or someone else? Patient reports no desire to harm self or others. Onset of symptoms is unknown. 11:26 Method Of Arrival: Ambulatory bp 11:26 Acuity: SUZETTE 3 bp Triage Assessment: 11:29 General: Appears in no apparent distress. Behavior is cooperative, appropriate for age, bp anxious. Pain: Complains of pain in left hand. EENT: Reports difficulty swallowing pain when swallowing. Neuro: No deficits noted. Cardiovascular: No deficits noted. Respiratory: No deficits noted. GI: No signs and/or symptoms were reported involving the gastrointestinal system. : No signs and/or symptoms were reported regarding the genitourinary system. Derm: No deficits noted. Musculoskeletal: Bony deformity noted of left middle finger. Historical: - Allergies: 11:29 No Known Allergies; bp - PMHx: 11:29 Anxiety; Bipolar disorder; Depression; Schizophrenia; bp - Immunization history:: Adult Immunizations up to date. - Infectious Disease History:: Denies. - Social history:: Smoking status: Patient denies any tobacco usage or history of. Screenin:08 [facility] ED Fall Risk Assessment (Adult) History of falling in the last 3 months, rg5 including since admission No falls in past 3 months (0 pts) Confusion or Disorientation No (0 pts) Intoxicated or Sedated No (0 pts) Impaired Gait No (0 pts) Mobility Assist Device Used Yes (1 pt) Altered Elimination No (0 pt) Score/Fall Risk Level 0 - 2 = Low Risk Oriented to surroundings. Abuse screen: Denies threats or abuse. Nutritional screening: No deficits noted. Tuberculosis screening: No symptoms or risk factors identified. Assessment: 12:08 General: Appears in no apparent distress. comfortable, Behavior is calm, cooperative, rg5 appropriate for age. Pain: Complains of pain in soft palate, left buccal mucosa and right buccal mucosa Quality of pain is described as aching. Neuro: Level of Consciousness is awake, alert, obeys commands, Oriented to person, place, time, situation. Cardiovascular: Patient's skin is warm and dry. Respiratory: Reports cough that is productive, Airway is patent Respiratory effort is even, unlabored, Breath sounds are clear. GI: Abdomen is flat. : No signs and/or symptoms were reported regarding the genitourinary system. EENT: Throat is reddened. Derm: Skin is intact, Skin is dry, Skin is normal. Musculoskeletal: Circulation, motion, and sensation intact. Range of motion: intact in all extremities. Vital Signs: 11:26 BP 112 / 76; Pulse 68; Resp 16; Temp 97.9; Pulse Ox 99% ; bp 12:07 BP 115 / 77; Pulse 65; Resp 18; Temp 98.4; Pulse Ox 100% ; Pain 5/10; rg5 12:07 Pain Scale: Adult rg5 ED Course: 11:00 Patient arrived in ED. mr 11:03 Ish Mak MD is Attending Physician. hiwot 11:28 Triage completed. bp 11:29 Arm band placed on. bp 11:30 Strep swab sent to lab. bp 11:52 Hand Left 3 View XRAY In Process Unspecified. EDMS 11:58 Damir Ho, ALESHA is Primary Nurse. rg5 12:08 Patient has correct armband on for positive identification. Bed in low position. Call rg5 light in reach. Side rails up X 1. Door closed. Noise minimized. 12:08 No provider procedures requiring assistance completed. Patient did not have IV access rg5 during this emergency room visit. 12:46 Victor M Figueroa MD is Referral Physician. hiwot Administered Medications: 12:48 Drug: AZITHromycin PO 500 mg PO once Route: PO; rg5 12:57 Follow up: Response: No adverse reaction rg5 Medication: 12:08 VIS not applicable for this client. rg5 Outcome: 12:47 Discharge ordered by . hiwot 12:58 Discharged to home ambulatory, rgDylan 12:58 Condition: stable 12:58 Discharge instructions given to patient, Instructed on discharge instructions, follow up and referral plans. Demonstrated understanding of instructions, follow-up care, medications, Prescriptions given X 2, 12:59 Patient left the ED. rg5 Signatures: Dispatcher [employer] EDPR Ish Mak MD MD cha Rivera, Mary, Reg Reg Edwin Branham, RN RN Damir Soriano, RN RN rg5
[2025-01-03 13:10] VITALS: BP 115/77; TEMP 98.4; O2SAT 100
== END 2025-01-03 12:59 | disposition home or self-care (01) ==
LOC: ER 10:59
PROC: 2W3KX1Z Immobilization of Left Finger using Splint (ICD-10-PCS; principal; 2025-01-03)
DX: J06.9 Acute upper respiratory infection, unspecified (principal); S62.653A Nondisplaced fracture of middle phalanx of left middle finger, initial encounter for closed fracture
CPT/HCPCS: 36415; 87070; 99284